=== PATIENT | female | born 1950 | race Caucasian/White ===

== ENCOUNTER 2023-01-31 10:26 | Emergency (ER) | payer MEDICARE ==
[2023-01-31] MEDS ORDERED: HYDROmorphone 0.5 MG/0.5 ML SYRINGE IVP STA ×2 (10:29→11:18)
--- NOTE | 2023-01-31 10:32 | ED ---
General Adult HPI <Edmund Magana - Last Filed: 01/31/23 11:54> - General Source: patient, RN notes reviewed, old records reviewed <Sang Elizabeth - Last Filed: 02/03/23 09:52> - General Stated complaint: right shoulder dislocaton Time Seen by Provider: 01/31/23 10:26 - History of Present Illness Initial comments: This is a 72-year-old female presents emergency Department complaining of right shoulder pain. She states she tripped over a cord and landed on her shoulder. Patient denies any other injury. Patient denies headache patient denies hitting her head patient denies any neck pain patient denies any chest pain back pain or abdominal pain. Patient has any lower extremity pain. (Sang Elizabeth) - Related Data Previous Rx's Medication Instructions Recorded Ketorolac [Toradol] 10 mg PO Q6HR #15 tab 01/31/23 Allergies Allergy/AdvReac Type Severity Reaction Status Date / Time meperidine [From Demerol] AdvReac Vomiting Verified 01/31/23 10:36 Review of Systems ROS Other: All systems not noted in ROS Statement are negative. <Edmund Magana - Last Filed: 01/31/23 11:54> ROS Other: All systems not noted in ROS Statement are negative. <Sang Elizabeth - Last Filed: 02/03/23 09:52> ROS Statement: Those systems with pertinent positive or pertinent negative responses have been documented in the HPI. General Exam <Sang Elizabeth - Last Filed: 02/03/23 09:52> - General Exam Comments Initial Comments: GENERAL: Patient is well-developed and well-nourished. Patient is nontoxic and well- hydrated and is in moderate distress. ENT: Neck is soft and supple. No significant lymphadenopathy is noted. Oropharynx is clear. Moist mucous membranes. Neck has full range of motion without eliciting any pain. EYES: The sclera were anicteric and conjunctiva were pink and moist. Extraocular movements were intact and pupils were equal round and reactive to light. Eyelids were unremarkable. PULMONARY: Unlabored respirations. Good breath sounds bilaterally. No audible rales rhonchi or wheezing was noted. CARDIOVASCULAR: There is a regular rate and rhythm without any murmurs gallops or rubs. ABDOMEN: Soft and nontender with normal bowel sounds. SKIN: Skin is clear with no lesions or rashes and otherwise unremarkable. NEUROLOGIC: Patient is alert and oriented x3. Cranial nerves II through XII are grossly intact. Motor and sensory are also intact. Normal speech, volume and content. Symmetrical smile. MUSCULOSKELETAL: Patient's right shoulder appears to be dislocated the carotid fossa appears to be empty in the head of the humerus is anteriorly and inferior LYMPHATICS: No significant lymphadenopathy is noted PSYCHIATRIC: Normal psychiatric evaluation. (Sang Elizabeth) Course Vital Signs 01/31/23 01/31/23 01/31/23 10:29 11:09 11:45 Temperature 97.9 F Pulse Rate 63 68 69 Respiratory 19 20 18 Rate Blood Pressure 153/83 153/78 O2 Sat by Pulse 98 97 100 Oximetry 01/31/23 01/31/23 01/31/23 11:50 11:55 12:10 Temperature Pulse Rate 66 70 64 Respiratory 12 18 17 Rate Blood Pressure 135/75 141/68 142/76 O2 Sat by Pulse 100 100 99 Oximetry 01/31/23 01/31/23 01/31/23 12:15 12:30 12:45 Temperature Pulse Rate 68 71 65 Respiratory 16 17 16 Rate Blood Pressure 161/77 136/67 141/61 O2 Sat by Pulse 90 L 95 96 Oximetry 01/31/23 13:00 Temperature Pulse Rate 76 Respiratory 18 Rate Blood Pressure 133/67 O2 Sat by Pulse 95 Oximetry Procedures - Orthopedic Joint Reduction Joint #1 Consent Obtained: written consent Side: right Joint Reduction Location: shoulder Analgesia: procedural sedation Shoulder Technique Used (if applicable): traction/counter-traction, external rotation Post-Reduction Neuro Exam: intact Post-Reduction Vascular Exam: intact Post Reduction X-Ray Obtained: Yes Post Reduction X-Ray Results: reduced Splint Applied: Yes Patient Tolerated Procedure: well, no complications <Edmund Magana M - Last Filed: 01/31/23 11:54> - Procedural Sedation *Procedural Sedation Start Time: 11:45 *Procedural Sedation Stop Time: 12:10 *Risks,benefits, and alternative therapies discussed?: Yes *Patient indicates understanding of risk/benefit discussion?: Yes *Indications: fracture/dislocation reduction *Previous Adverse Reaction to Anesthesia/Sedation?: No * Testing Complete?: No Reason Test Not Complete:: Emergent Situation *ASA Class: II *Mallampati Airway Score: 2 Preparation: funeral home attendant applied, pulse oximeter, supplemental O2 applied IV Propofol Dose (mgs): 75 Complications: none Interventions: assist by BVM Patient Tolerated Procedure: well <Sang Elizabeth - Last Filed: 02/03/23 09:52> Medical Decision Making <Sang Elizabeth - Last Filed: 02/03/23 09:52> - Medical Decision Making Was pt. sent in by a medical professional or institution (, PA, MEDICAL SECRETARY, urgent care, hospital, or shelter...) When possible be specific @ -No Did you speak to anyone other than the patient for history (EMS, parent, family, police, friend...)? What history was obtained from this source @ -No Did you review nursing and triage notes (agree or disagree)? Why? @ -I reviewed and agree with nursing and triage notes Were old charts reviewed (outside hosp., previous admission, EMS record, old EKG, old radiological studies, urgent care reports/EKG's, shelter records)? Report findings @ -No old charts were reviewed Differential Diagnosis (chest pain, altered mental status, abdominal pain women, abdominal pain men, vaginal bleeding, weakness, fever, dyspnea, syncope, headache, dizziness, GI bleed, back pain, seizure, CVA, palpatations, mental health, musculoskeletal)? @ -Differential Musculoskeletal Muscular strain, contusion, ligament sprain, fracture, arthritis, septic arthritis, bursitis, cellulitis, muscle spasm, nerve compression, DVT, arterial occlusion, herpes zoster, electrolyte abnormality, tumor.... This is not meant to be in all inclusive list EKG interpreted by me (3pts min.). @ -As above X-rays interpreted by me (1pt min.). @ -X-ray of the shoulder shows a dislocated shoulder anteriorly and inferiorly. There is also a Hill-Sachs type fracture on the humeral head. Postreduction shows good placement of the shoulder CT interpreted by me (1pt min.). @ -None done U/S interpreted by me (1pt. min.). @ -None done What testing was considered but not performed or refused? (CT, X-rays, U/S, labs)? Why? @ -None What meds were considered but not given or refused? Why? @ -None Did you discuss the management of the patient with other professionals (professionals i.e. , PA, MEDICAL SECRETARY, lab, RT, psych nurse, nursing home social worker, aircraft seat upholsterer, teacher, police officer, case specialist)? Give summary @ -I spoke with PA for Dr. Ashraf and he wanted me to go ahead and reduce the shoulder and have them follow-up with him Was smoking cessation discussed for >3mins.? @ -No Was critical care preformed (if so, how long)? @ -No Were there social determinants of health that impacted care today? How? (Homelessness, low income, unemployed, alcoholism, drug addiction, transportation, low edu. Level, literacy, decrease access to med. care, long-term, rehab)? @ -No Was there de-escalation of care discussed even if they declined (Discuss DNR or withdrawal of care, Hospice)? DNR status @ -No What co-morbidities impacted this encounter? (DM, HTN, Smoking, COPD, CAD, Cancer, CVA, ARF, Chemo, Hep., AIDS, mental health diagnosis, sleep apnea, morbid obesity)? @ -None Was patient admitted / discharged? Hospital course, mention meds given and route, prescriptions, significant lab abnormalities, going to OR and other pertinent info. @ -Patient's shoulder was dislocated supposed to shoulder place with some traction x-ray showed been placed patient was put in a sling will follow-up with orthopedics Undiagnosed new problem with uncertain prognosis? @ -No Drug Therapy requiring intensive monitoring for toxicity (Heparin, Nitro, Insulin, Cardizem)? @ -No Were any procedures done? @ -No Diagnosis/symptom? @ -Shoulder dislocation and fracture Acute, or Chronic, or Acute on Chronic? @ -Acute Uncomplicated (without systemic symptoms) or Complicated (systemic symptoms)? @ -Complicated Side effects of treatment? @ -No Exacerbation, Progression, or Severe Exacerbation? @ -No Poses a threat to life or bodily function? How? (Chest pain, USA, MD, pneumonia, PE, COPD, DKA, ARF, appy, cholecystitis, CVA, Diverticulitis, Homicidal, Suicidal, threat to staff... and all critical care pts) @ -No (Sang Elizabeth) Disposition <Edmund Magana - Last Filed: 01/31/23 11:54> Is patient prescribed a controlled substance at d/c from ED?: No Time of Disposition: 12:48 <Sang Elizabeth - Last Filed: 02/03/23 09:52> Clinical Impression: Fall, Shoulder dislocation Disposition: HOME SELF-CARE Instructions (If sedation given, give patient instructions): Shoulder Dislocation (ED) Prescriptions: Ketorolac [Toradol] 10 mg PO Q6HR #15 tab Referrals: Hasmukh Ashraf DO [Doctor of Osteopathic Medicine] - 1-2 days
[2023-01-31 10:38] VITALS: TEMP 97.9
--- NOTE | 2023-01-31 11:00 | XR ---
EXAMINATION TYPE: XR shoulder limited RT DATE OF EXAM: 01/31/2023 10:45 AM CLINICAL INDICATION:Female, 72 years old with history of Fall; [facility] COMPARISON: None TECHNIQUE: XR shoulder limited RT; shoulder was examined in AP projections. FINDINGS/ IMPRESSION: Anterior inferior shoulder dislocation withe irregularity to the posterior humerus inferior glenoid s uggestive of Hill-Sachs/Bankart injuries. Further evaluation with MRI is recommended.
[2023-01-31] MEDS ORDERED: PROPOFOL 10 MG/ML 20 ML VIAL IV ONE ×2 (11:36→11:47)
--- NOTE | 2023-01-31 12:07 | XR ---
EXAMINATION TYPE: XR shoulder limited RT DATE OF EXAM: 01/31/2023 11:54 AM CLINICAL INDICATION:Female, 72 years old with history of reduction; [facility] COMPARISON: 01/31/2023. TECHNIQUE: XR shoulder limited RT; shoulder was examined in AP, internally rotated and scapular Y pr ojections. FINDINGS/IMPRESSION: 1. Appropriate position of the right glenohumeral joint with bony fragment in the medial aspect of t he glenoid. Correlate for Hill-Sachs with joint body. Bony Bankart not entirely excluded. 2. No additional fractures identified. The remaining portions of the chest are unremarkable.
[2023-01-31] MEDS ORDERED: ONDANSETRON 4 MG/2 ML VIAL IVP STA (12:24)
[2023-01-31] MEDS ORDERED: ACET/COD 300 MG/30 MG STARTER PACK 6 TAB BTL PO STA (12:49)
[2023-01-31 13:21] VITALS: BP 133/67; PULSE 76; RESP 18
== END 2023-01-31 13:10 | disposition home or self-care (01) ==
LOC: EC 10:26
DX: S43.004A Unspecified dislocation of right shoulder joint, initial encounter (principal); Z88.5 Allergy status to narcotic agent; W01.0XXA Fall on same level from slipping, tripping and stumbling without subsequent striking against object, initial encounter
CPT/HCPCS: 73020; 99284; 96374; 96375; 96376; 23650; J2405; J2704; J1170

== ENCOUNTER → 2023-02-15 | Outpatient (CLI) | payer MEDICARE, OTHER ==
--- NOTE | 2023-02-19 04:55 | MR ---
EXAMINATION TYPE: MR shoulder RT wo con DATE OF EXAM: 02/15/2023 COMPARISON: Recent right shoulder x-rays January 31, 2023 HISTORY: Rt shoulder pain with difficulty raising arm overhead, recent dislocation TECHNIQUE: Multiplanar, multisequence imaging of the right shoulder is performed without contrast. FINDINGS: Rotator Cuff: Partial full-thickness tearing involving anterior 1/2-2/3 fibers of the supraspinatus t endon. Infraspinatus tendon is intact but extending to level of fragmented displaced bone. Subscapula ris tendon intact with surrounding fluid. Acromioclavicular Joint: Moderate narrowing and mild spurring. Glenohumeral Joint: Moderate sized joint effusion with ill-defined fluid. Narrowing is seen. Femoral head shows several small bony fragments anteriorly seen best on axial image 21 corresponding to plain film with bone loss along the anterior aspect of the humeral head. No corresponding Bankart type les ion involving the anterior-inferior glenoid clearly identified. Labrum: The labrum appears grossly intact given limitation of non-arthrogram study. Biceps Tendon: The long head of biceps is in normal location within bicipital groove. Intracapsular p ortion not well seen. Bone marrow signal: Heterogeneous increased T2 signal involving the humeral head laterally and anteri blade at the site of comminuted fracture injury. Other: No additional significant abnormality is appreciated. IMPRESSION: 1. Hill-Sachs fracture deformity involving the anterior superior humeral head with several small disp laced bony fragments including levels of the articulation of the supraspinatus and infraspinatus tend ons. 2. Moderate size glenohumeral joint effusion with adjacent ill-defined fluid. Moderate AC joint arthr opathy.
== END | disposition home or self-care (01) ==
LOC: RADMRIMAIN 06:54
PROVIDERS: ATTEND Orthopaedic Surgery Hand Surgery
DX: M19.011 Primary osteoarthritis, right shoulder (principal); M21.821 Other specified acquired deformities of right upper arm; M24.811 Other specific joint derangements of right shoulder, not elsewhere classified

== ENCOUNTER → 2023-02-18 | Outpatient (CLI) | payer MEDICARE, OTHER ==
[2023-02-18 14:42] LABS: BUN/Creat Ratio 23.57 Ratio (12.00-20.00); Blood Urea Nitrogen 16.5 mg/dL (9.0-27.0); Calcium 10.4 mg/dL (8.7-10.3); Carbon Dioxide 29.2 mmol/L (21.6-31.8); Chloride 101 mmol/L (96-109); Glucose 88 mg/dL (70-110); Potassium 4.8 mmol/L (3.5-5.5); Sodium 142 mmol/L (135-145)
[2023-02-18 16:30] LABS: Basophils # (A) 0.14 X 10*3/uL (0.00-0.10); Basophils % (A) 1.5 %; Eosinophils # (A) 0.19 X 10*3/uL (0.04-0.35); HCT 48.4 % (37.2-46.3); HGB 15.2 g/dL (12.0-15.0); Lymphocytes # (A) 2.38 X 10*3/uL (0.90-5.00); Lymphocytes % (A) 24.7 %; MCH 28.6 pg (27.0-32.0); MCHC 31.4 g/dL (32.0-37.0); MCV 91.1 FL (80.0-97.0); Mean Platelet Volume 11.8 FL (9.5-12.2); Monocytes # (A) 0.67 X 10*3/uL (0.20-1.00); NRBC Per 100 WBC 0 X 10*3/uL (0.00-0.01); Neutrophils # (A) 6.23 X 10*3/uL (1.80-7.70); Neutrophils % (A) 64.5 %; Platelet Count 403 X 10*3/uL (140-440); RBC 5.31 X 10*6/uL (4.10-5.20); RDW 13.3 % (11.5-14.5); WBC 9.64 X 10*3/uL (4.50-10.00)
== END | disposition home or self-care (01) ==
LOC: LABPAT 11:50
PROVIDERS: ATTEND Orthopaedic Surgery
DX: Z01.818 Encounter for other preprocedural examination (principal); M75.41 Impingement syndrome of right shoulder; R94.31 Abnormal electrocardiogram [ECG] [EKG]
CPT/HCPCS: 80048; 85025; 93005

== ENCOUNTER 2023-02-23 08:12 | Day surgery (SDC) | payer MEDICARE, OTHER ==
--- NOTE | 2023-02-22 09:09 | P.HPOR ---
History of Present Illness H&P Date: 02/22/23 Chief Complaint: Right shoulder pain The patient is a 72-year-old [id number] female who presents to right shoulder pain after an injury 01/31/2023. She slipped in her garage landing on her right arm. She ended up dislocating her shoulder and underwent closed reduc tion with sedation. She has been wearing a sling since. She denies previous problems. Review of Systems As per HPI Past Medical History Past Medical History: Hyperlipidemia History of Any Multi-Drug Resistant Organisms: None Reported Past Surgical History: Appendectomy, Orthopedic Surgery Additional Past Surgical History / Comment(s): orif left wrist Past Anesthesia/Blood Transfusion Reactions: Motion Sickness Past Psychological History: No Psychological Hx Reported Smoking Status: Former smoker Past Alcohol Use History: Occasional Past Drug Use History: None Reported - Past Family History Mother Family Medical History: No Reported History Medications and Allergies Allergies Allergy/AdvReac Type Severity Reaction Status Date / Time meperidine [From Demerol] AdvReac Vomiting Verified 02/22/23 08:30 Physical Examination - Shoulder right Appearance: swelling Tenderness with palpation: anterior, bicipital groove Pain: with abduction, with forward flexion, with external rotation ROM: external rotation: 0 degrees Strength: abduction: 4/5 Strength: external rotation: 4/5 Tests: internal impingement tests: positive, anterior instability tests: positive Apprehension: anterior apprehension present: yes Results Patient is a well-developed well-nourished female approximately 5 foot 7, 165 pounds of mesomorphic habitus. HEENT exam is nonfocal, neck issupple. She's tender about the right anterior glenohumeral joint. She has limited motion secondary to pain. Motor strength is 4 minus or 5 for abduction and external rotation. Her distal neurovascular appears intact in the right upper extremity. - Diagnostic results Shoulder x-ray: image reviewed (2 views of the right shoulder obtained in the office show a greater tuberosity fracture with some displacement. The glenohumeral joint appears to be located.) Shoulder MRI: image reviewed (Right shoulder MRI shows evidence of an anterior labral tear along with Hill-Sachs lesion and fragmentation of the greater tuberosity involving the supraspinatus and a portion of the infraspinatus.) Assessment and Plan Assessment: Acute right anterior glenohumeral dislocation with greater tuberosity fracture/rotator cuff tear/anterior labral tear Plan: I talked to the patient and her at length regarding her condition along with treatment options. At this point she opted to proceed with surgery. We'll plan to proceed with right shoulder arthroscopy with probable anterior labral repair in addition to rotator cuff repair. Risks and benefits were discussed at length in layman's terms. We will likely perform that as an outpatient proc edure.
[~2023-02-23 08:12] MED LIST: DEXAMETHASONE SOD PHOSPHATE 4 MG/ML 1 ML VIAL IV ONE; LACTATED RINGERS 1,000 ML IV SCH; ONDANSETRON 4 MG/2 ML VIAL IVP ONE; fentaNYL (PF) 50 MCG/ML 2 ML AMP IV PRN
[2023-02-23] MEDS ORDERED: MIDAZOLAM 2 MG/2 ML VIAL IVP ONE (09:31)
[2023-02-23] MEDS ORDERED: NEOSTIGMINE 1 MG/ML 10 ML VIAL ONE (10:19)
[2023-02-23] MEDS ORDERED: SUCCINYLCHOLINE CHLORIDE 200 MG/10 ML VIAL IV ONE (10:19)
[2023-02-23] MEDS ORDERED: PHENYLEPHRINE 10 MG/ML VIAL ONE (10:19)
[2023-02-23] MEDS ORDERED: GLYCOPYRROLATE 0.2 MG/ML 2 ML VIAL ONE (10:19)
[2023-02-23] MEDS ORDERED: fentaNYL (PF) 50 MCG/ML 2 ML AMP ONE (10:19)
[2023-02-23] MEDS ORDERED: ROPIVACAINE 5 MG/ML 30 ML VIAL ONE (10:19)
[2023-02-23] MEDS ORDERED: ROCURONIUM 10 MG/ML (5 ML VIAL) IV ONE (10:19)
[2023-02-23] MEDS ORDERED: LIDOCAINE 1% INJ 10MG/ML (20 ML MDV) ONE (10:19)
[2023-02-23] MEDS ORDERED: PROPOFOL 10 MG/ML 20 ML VIAL IV ONE (10:19)
[2023-02-23] MEDS ORDERED: EPINEPHrine (PF) 1 ML in SODIUM CHLORIDE 0.9% IRRIGATIO 3,000 ML IRRIGATION ONE ×6 (10:56→10:58)
--- NOTE | 2023-02-23 11:03 | P.ANPRN ---
Procedure Note - Anesthesia - Nerve Block Performed Right Interscalene Single Time Out Performed: Yes ([id number]) Date of Procedure: 02/23/23 Procedure Start Time: :30 Procedure Stop Time: :35 Location of Patient: PreOp Indication: Acute Post-Operative Pain, Requested by Surgeon Sedation Type: Sedate with meaningful contact maintained Preparation: Sterile Prep, Sterile Dressing Position: Sitting Catheter: None Needle Types: Pajunk Needle Gauge: Other (see comment) (22G) Ultrasound used to visualize needle placement: Yes Ultrasound used to observe medication spread: Yes Injectate: 0.5% Ropivacaine (see comment for volume) (20 ml) Blood Aspirated: No Pain Paresthesia on Injection Noted: No Resistance on Injection: Normal Image Stored and Saved: Yes Events: Uneventful and Well Tolerated
[2023-02-23] MEDS ORDERED: LACTATED RINGERS 1,000 ML IV ONE (12:55)
--- NOTE | 2023-02-23 13:13 | P.OP ---
Date of Procedure: 02/23/23 Preoperative Diagnosis: Right anterior glenohumeral dislocation/anterior labral tear/greater tuberosity fracture/rotator cuff tear Postoperative Diagnosis: 4 cm rotator cuff tear/high-grade partial-thickness tear intra-articular portion proximal biceps/anterior labral tear Procedure(s) Performed: Right shoulder arthroscopic anterior labral repair/biceps tenotomy/rotator cuff repair Implants: Arthrex 4.75 mm swivel lock anchor 2, 5.5 mm swivel lock anchor 2 Anesthesia: VANITAA, regional Surgeon: Meliton Rangel Studio Operator #1: Yoshi Milligan Estimated Blood Loss (ml): 10 Pathology: none sent Condition: stable Disposition: PACU Indications for Procedure: The patient is a 72-year-old female who presents with right shoulder pain and weakness after sustaining an anterior dislocation recently. Her MRI showed evidence of an anterior labral tear along with displaced greater tuberosity fracture/rotator cuff tear. A discussion of the risks and benefits of operative intervention versus conservative measures was made with patient. She opted to proceed with surgery. Operative risks to include infection, neurovascular injury, development of blood clots, possible tendon rerupture, possible need for subsequent procedures was discussed. Informed consent was obtained. Operative Findings: As below Description of Procedure: The patient was brought to the operating room, and after induction of general anesthesia was placed in a beachchair position. A preoperative interscalene block was placed for postoperative analgesia. I examined the right shoulder. The right upper extremity was prepped and draped in normal fashion. The bony outlines the acromion, distal clavicle, and coracoid process were outlined with a skin marker. The glenohumeral joint was inflated with 50 mL of saline utilizing a spinal needle from posterior approach. A posterior portal was made through a 5 mm skin incision 1 cm medial and inferior to the posterior lateral border. A blunt trocar was used to easily into the joint. Diagnostic arthroscopy was performed. An anterior portal was made just lateral to the coracoid process entering the joint above the subscapularis tendon. The subscapularis tendon appeared to be intact. Anterior labrum was torn off the anterior glenoid from the 2:00 to 6 o'clock position. An anterior portal was made lateral to the coracoid process and a cannula was inserted. This was brought in above the subscapularis. The inferior recess was inspected. The posterior labrum was intact. There was a high-grade partial-thickness tear of the long head of the biceps involving interarticular portion. It was elected to proceed with release at this point. This was released from the superior labrum with electrocautery and was allowed to retract to the bicipital groove. The anterior labrum was then freed and mobilized. 2 suture anchors were placed just off the lateral edge of the glenoid with a drill guide. Both obtained good purchase. The sutures were then passed through the labrum with a curved suture passer. There were then cinched and the soft tissue was tensioned. One anchor was at the 2 o'clock position and the second anchor the 5 o'clock position. I felt this was an adequate anterior repair. On inspection the rotator cuff, a full-thickness tear involving the supraspinatus and infraspinatus was noted with attached only fragments of the greater tuberosity. Minimal retraction was noted. The posterior portion of the cuff appeared to be intact. The arthroscope was placed into the subacromial space. A lateral portal was made 2 centimeters inferior to the anterior lateral border of the acromion. The rotator cuff was then mobilized with a traction suture. This was then easily brought back to the greater tuberosity. I then made an accessory posterior lateral portal for viewing. An accessory superior lateral portal was made just off the lateral edge of the acromion for anchor placement. 2 anchors were then placed just off the articular surface with the appropriate starting awl. 4.75 mm anchors preloaded with #2 fiber tape were placed. Good purchase was obtained. These fiber tapes were then passed the rotator cuff with a scorpion suture passer. A lateral row was created crisscrossing these tapes. 5.5 mm swivel lock anchors x2 were placed laterally. Good purchase was obtained. Final arthroscopic view showed adequate compression at the footprint. The arthroscope was then removed. The portals were closed with simple 3-0 nylon sutures. A sterile dressing was applied in addition to an abductor brace. The patient was then awoken from general anesthesia and transferred to recovery room in good condition. Blood loss was estimated at 10 mL. No complications were incurred. Sponge and needle counts were correct in the case. Yoshi TOMAS assisted and the major components of the case to include arm positioning, anchor placement, and rotator cuff repair.
[2023-02-23 13:48] VITALS: TEMP 97.6
[2023-02-23 14:59] VITALS: BP 135/75; PULSE 60; RESP 14
== END 2023-02-23 15:15 | disposition home or self-care (01) ==
LOC: OR 08:12
PROVIDERS: ATTEND Orthopaedic Surgery
DX: S43.431A Superior glenoid labrum lesion of right shoulder, initial encounter (principal); S46.111A Strain of muscle, fascia and tendon of long head of biceps, right arm, initial encounter; S46.011A Strain of muscle(s) and tendon(s) of the rotator cuff of right shoulder, initial encounter; G89.18 Other acute postprocedural pain; E78.5 Hyperlipidemia, unspecified; Z88.5 Allergy status to narcotic agent; M19.90 Unspecified osteoarthritis, unspecified site; Z79.899 Other long term (current) drug therapy; W01.0XXA Fall on same level from slipping, tripping and stumbling without subsequent striking against object, initial encounter; Y92.015 Private garage of single-family (private) house as the place of occurrence of the external cause
CPT/HCPCS: 64415; 29827; 29828; 29806; C1713 ×7; C1894; J2250; J0330; J1100; J2710; J0690; J2405; J0171; J2001; J3010; J2795; J2704; J2371